=== PATIENT | male | born 1990 | race Caucasian/White ===

== ENCOUNTER 2017-08-29 17:24 | Inpatient (IN) | payer OTHER ==
[~2017-08-29] VITALS: Ht 182.9 cm; Wt 77.1 kg
[~2017-08-29 17:24] MED LIST: ALPRAZOLAM1 MG PO; AMOX TR-K CLV1 EAC4 PO; CLEOCIN300 MG PO; FOLIC ACID1 MG PO; KEPPRA500 MG PO; KLONOPIN1 MG PO; LIBRIUM10 MG PO; MULTI-DAY VITA1 EACH PO; NAPROSYN500 MG PO; NICOTINE PATCH1 EAC2 TD; NOHOMEMEDS; NORCO 5/3251 TABLET PO; OXYCODONE HCL10 MG PO; OXYCODONE HCL5 MG PO; PERCOCET 10/1 TABLET PO; PHENERGAN DM SYR1 ML PO; PROMETHAZINE HC25 M1; THERAGRAN1 TABLET PO; THIAMINE HCL100 MG PO; TRAZODONE HCL50 MG PO; TRIAMCINOLONE A15 GM TP; Thiamine,Vitamin B1 PO; ZOFRAN ODT4 MG PO
[2017-08-29 18:04] LABS: MCH 33.2 PG (29.0-34.0); MCHC 35.6 G/DL (30.0-36.0); MCV 93.2 FL (86-99); PLATELET COUNT 245 K/uL (156-360); RBC DIS.WIDTH-SD 44.7 % (39-53); RED BLOOD COUNT 5.15 M/uL (4.00-5.50); WHITE BLOOD COUNT 14.5 K/uL (4.1-10.2)
[2017-08-29 18:12] LABS: CHLORIDE 103 mEq/L (99-109); SODIUM 137 mEq/L (136-147)
[2017-08-29 18:13] LABS: ADD MIUA? YES; BILIRUBIN SMALL; BLOOD NEGATIVE; COLOR YELLOW ((YELLOW)); GLUCOSE (STRIP) NEGATIVE; KETONES NEGATIVE; LEUKOCYTES SMALL; NITRITE NEGATIVE; PROTEIN (STRIP) 30; SPECIFIC GRAVITY 1.021 (1.000-1.030)
[2017-08-29 18:14] LABS: GLUCOSE 101 mg/dL (70-99)
[2017-08-29 18:15] LABS: ANION GAP 11 MEQ/L (2-14)
[2017-08-29 18:16] LABS: TOTAL BILIRUBIN 2.1 mg/dL (0.0-1.0)
[2017-08-29 18:18] LABS: ALKALINE PHOSPHATASE 108 IU/L (3-129); GFR ESTIMATE (CALCULATED) > 59 mL/min/
[2017-08-29 18:19] LABS: UREA NITROGEN (BUN) 12 mg/dL (9-23)
[2017-08-29 18:25] LABS: BACTERIA RARE /HPF; EPITHELIAL CELLS NONE SEEN /HPF; MUCUS NONE SEEN /LPF; UCUL ADDED? YES; WHITE BLOOD CELLS 20-30 /HPF (0-5)
[2017-08-29 19:33] LABS: LIPASE 146 U/L (1.0-51.0)
[2017-08-29] MEDS ORDERED: QUETIAPINE FUMA50 MG PO (21:00)
[2017-08-29] MEDS ORDERED: GABAPENTIN800 MG PO (21:00)
[2017-08-29] MEDS ORDERED: NYQUIL (21:05)
[2017-08-29 23:52] VITALS: BP 137/79
[2017-08-30 03:36] VITALS: BP 118/72
[2017-08-30 07:26] LABS: HEMATOCRIT 47.3 % (38.0-50.0); MCH 32.5 PG (29.0-34.0); MCHC 34.5 G/DL (30.0-36.0); MCV 94.2 FL (86-99); MEAN PLAT.VOLUME 11.4 uM^3 (9.0-12.4); PLATELET COUNT 222 K/uL (156-360); RED BLOOD COUNT 5.02 M/uL (4.00-5.50); WHITE BLOOD COUNT 15.4 K/uL (4.1-10.2)
[2017-08-30 08:05] LABS: ALKALINE PHOSPHATASE 84 IU/L (3-129); ANION GAP 10 MEQ/L (2-14); CHLORIDE 107 MEQ/L (99-109); GFR ESTIMATE (CALCULATED) > 59 mL/min/; GLUCOSE 80 mg/dL (70-99); POTASSIUM 4.6 MEQ/L (3.7-5.4); SAMPLE HEMOLYSIS CHECK 0; SAMPLE ICTERIC CHECK 0; SAMPLE LIPEMIA CHECK 0; SODIUM 140 MEQ/L (136-147); TOTAL BILIRUBIN 2.5 MG/DL (0.0-1.0); UREA NITROGEN (BUN) 13 mg/dL (9-23)
[2017-08-30 08:17] VITALS: BP 134/83
[2017-08-30 11:17] VITALS: BP 131/77
[2017-08-30 15:05] LABS: ANTI-HEPATITIS A VIRUS (IGM) Nonreactive; HAV INDEX 0.19; HBSG INDEX 0.19
[2017-08-30 15:07] LABS: ANTI-HEPATITIS B CORE (IGM) Nonreactive; HBC IgM INDEX 0.07
[2017-08-30 15:08] LABS: HPCA INDEX 15.39
[2017-08-30 16:03] VITALS: BP 134/71
[2017-08-30 20:31] VITALS: BP 128/76
[2017-08-30 23:37] VITALS: BP 138/74
[2017-08-31 04:12] VITALS: BP 130/81
[2017-08-31 06:27] LABS: HEMATOCRIT 42.8 % (38.0-50.0); MCH 33.3 PG (29.0-34.0); MCHC 35.7 G/DL (30.0-36.0); PLATELET COUNT 172 K/uL (156-360); RBC DIS.WIDTH-CV 12.7 % (11.8-14.6); RBC DIS.WIDTH-SD 43.6 % (39-53); WHITE BLOOD COUNT 13.5 K/uL (4.1-10.2)
[2017-08-31 06:55] LABS: ALKALINE PHOSPHATASE 75 IU/L (3-129); AMYLASE 165 IU/L (1-118); ANION GAP 10 MEQ/L (2-14); CHLORIDE 104 MEQ/L (99-109); DIRECT BILIRUBIN 0.2 mg/dL (0.0-0.3); GFR ESTIMATE (CALCULATED) > 59 mL/min/; GLUCOSE 78 mg/dL (70-99); LIPASE 311 U/L (1.0-51.0); MAGNESIUM 1.7 mg/dl (1.3-2.7); POTASSIUM 4.4 MEQ/L (3.7-5.4); SAMPLE HEMOLYSIS CHECK 1; SAMPLE ICTERIC CHECK 0; SAMPLE LIPEMIA CHECK 0; SODIUM 137 MEQ/L (136-147); TOTAL BILIRUBIN 1.3 MG/DL (0.0-1.0); UREA NITROGEN (BUN) 10 mg/dL (9-23)
[2017-08-31 08:43] VITALS: BP 122/72
[2017-08-31 12:25] VITALS: BP 130/70
[2017-08-31 16:40] VITALS: BP 129/73
[2017-08-31 19:45] VITALS: BP 127/81
[2017-08-31 23:32] VITALS: BP 131/79
[2017-09-01 07:01] LABS: HEMATOCRIT 39.9 % (38.0-50.0); MCH 32.1 PG (29.0-34.0); MCHC 34.8 G/DL (30.0-36.0); MCV 92.1 FL (86-99); PLATELET COUNT 161 K/uL (156-360); RBC DIS.WIDTH-CV 12.5 % (11.8-14.6); RBC DIS.WIDTH-SD 42.8 % (39-53); RED BLOOD COUNT 4.33 M/uL (4.00-5.50); WHITE BLOOD COUNT 8.8 K/uL (4.1-10.2)
[2017-09-01 07:27] LABS: ALKALINE PHOSPHATASE 68 IU/L (3-129); AMYLASE 116 IU/L (1-118); ANION GAP 7 MEQ/L (2-14); CHLORIDE 102 MEQ/L (99-109); DIRECT BILIRUBIN 0.2 mg/dL (0.0-0.3); GFR ESTIMATE (CALCULATED) > 59 mL/min/; GLUCOSE 77 mg/dL (70-99); LIPASE 292 U/L (1.0-51.0); POTASSIUM 4.3 MEQ/L (3.7-5.4); SAMPLE HEMOLYSIS CHECK 0; SAMPLE ICTERIC CHECK 0; SAMPLE LIPEMIA CHECK 0; SODIUM 139 MEQ/L (136-147); UREA NITROGEN (BUN) 8 mg/dL (9-23)
[2017-09-01 07:28] LABS: TOTAL BILIRUBIN 0.9 MG/DL (0.0-1.0)
[2017-09-01 08:34] VITALS: BP 128/78
[2017-09-01 11:13] VITALS: BP 129/74
[2017-09-01 16:42] VITALS: BP 124/82
[2017-09-01 19:34] VITALS: BP 132/85
[2017-09-01 23:28] VITALS: BP 135/79
[2017-09-02] VITALS (7 sets, daily range): BP systolic 97–135; BP diastolic 56–84
[2017-09-02 07:01] LABS: HEMATOCRIT 41.2 % (38.0-50.0); MCH 31.8 PG (29.0-34.0); MCHC 34.2 G/DL (30.0-36.0); MEAN PLAT.VOLUME 11.2 uM^3 (9.0-12.4); PLATELET COUNT 194 K/uL (156-360); RBC DIS.WIDTH-CV 12.5 % (11.8-14.6); RBC DIS.WIDTH-SD 43.1 % (39-53); RED BLOOD COUNT 4.43 M/uL (4.00-5.50); WHITE BLOOD COUNT 8.3 K/uL (4.1-10.2)
[2017-09-02 07:29] LABS: ALKALINE PHOSPHATASE 68 IU/L (3-129); AMYLASE 130 IU/L (1-118); ANION GAP 7 MEQ/L (2-14); CHLORIDE 103 MEQ/L (99-109); DIRECT BILIRUBIN 0.2 mg/dL (0.0-0.3); GFR ESTIMATE (CALCULATED) > 59 mL/min/; LIPASE 400 U/L (1.0-51.0); POTASSIUM 4.2 MEQ/L (3.7-5.4); SAMPLE HEMOLYSIS CHECK 0; SAMPLE ICTERIC CHECK 0; SAMPLE LIPEMIA CHECK 0; SODIUM 142 MEQ/L (136-147); TOTAL BILIRUBIN 0.8 MG/DL (0.0-1.0); UREA NITROGEN (BUN) 6 mg/dL (9-23)
[2017-09-02 07:32] LABS: GLUCOSE 110 mg/dL (70-99)
[2017-09-03 03:17] VITALS: BP 116/65
[2017-09-03 06:23] LABS: HEMATOCRIT 39.1 % (38.0-50.0); MCH 31.9 PG (29.0-34.0); MCHC 34.5 G/DL (30.0-36.0); MCV 92.4 FL (86-99); MEAN PLAT.VOLUME 11.1 uM^3 (9.0-12.4); PLATELET COUNT 189 K/uL (156-360); RBC DIS.WIDTH-CV 12.7 % (11.8-14.6); RBC DIS.WIDTH-SD 43.1 % (39-53); RED BLOOD COUNT 4.23 M/uL (4.00-5.50)
[2017-09-03 06:48] LABS: ALKALINE PHOSPHATASE 73 IU/L (3-129); ANION GAP 8 MEQ/L (2-14); CHLORIDE 104 MEQ/L (99-109); GFR ESTIMATE (CALCULATED) > 59 mL/min/; GLUCOSE 122 mg/dL (70-99); POTASSIUM 3.8 MEQ/L (3.7-5.4); SAMPLE HEMOLYSIS CHECK 0; SAMPLE ICTERIC CHECK 0; SAMPLE LIPEMIA CHECK 0; SODIUM 141 MEQ/L (136-147); TOTAL BILIRUBIN 0.8 MG/DL (0.0-1.0); UREA NITROGEN (BUN) 5 mg/dL (9-23)
[2017-09-03 08:47] VITALS: BP 130/89
[2017-09-03 09:46] LABS: AMYLASE 160 IU/L (1-118); LIPASE 438 U/L (1.0-51.0)
[2017-09-03 11:45] VITALS: BP 115/64
[2017-09-03 12:08] LABS: HCV RNA (LOG IU/mL) 6.03 (<1.18)
[2017-09-03] MEDS ORDERED: OXYCODONE HCL15 MG PO (16:31)
[2017-09-03 16:46] VITALS: BP 123/80
[2017-09-03 20:57] VITALS: BP 110/72
[2017-09-04 00:16] VITALS: BP 126/82
[2017-09-04 04:13] VITALS: BP 112/67; BP 144/80
[2017-09-04 08:16] LABS: ALKALINE PHOSPHATASE 80 IU/L (3-129); ANION GAP 6 MEQ/L (2-14); CHLORIDE 103 MEQ/L (99-109); GFR ESTIMATE (CALCULATED) > 59 mL/min/ (58.99-99999); GLUCOSE 105 mg/dL (70-99); POTASSIUM 4.5 MEQ/L (3.7-5.4); SAMPLE HEMOLYSIS CHECK 0; SAMPLE ICTERIC CHECK 0; SAMPLE LIPEMIA CHECK 0; SODIUM 142 MEQ/L (136-147); UREA NITROGEN (BUN) 9 mg/dL (9-23)
[2017-09-04 08:20] LABS: TOTAL BILIRUBIN 0.6 MG/DL (0.0-1.0)
[2017-09-04 08:52] VITALS: BP 102/65
== END 2017-09-04 11:26 | disposition home or self-care (01) | DRG 439 ==
LOC: EME 17:24 → EDOF 21:37 → 3EAST 21:37 → ENRESERV 21:40 → 3EAST 23:19
PROVIDERS: Hospitalist; Internal Medicine Gastroenterology; Physician Assistant
DX: K85.20 Alcohol induced acute pancreatitis without necrosis or infection (principal); R65.10 Systemic inflammatory response syndrome (SIRS) of non-infectious origin without acute organ dysfunction; K70.10 Alcoholic hepatitis without ascites; F10.20 Alcohol dependence, uncomplicated; N39.0 Urinary tract infection, site not specified; E86.0 Dehydration; G89.29 Other chronic pain; M25.521 Pain in right elbow; F32.9 Major depressive disorder, single episode, unspecified; G43.909 Migraine, unspecified, not intractable, without status migrainosus; R30.0 Dysuria; R74.0 Nonspecific elevation of levels of transaminase and lactic acid dehydrogenase [LDH]; B19.20 Unspecified viral hepatitis C without hepatic coma; F12.10 Cannabis abuse, uncomplicated; F17.200 Nicotine dependence, unspecified, uncomplicated; Z80.0 Family history of malignant neoplasm of digestive organs; Z81.1 Family history of alcohol abuse and dependence; Z86.73 Personal history of transient ischemic attack (TIA), and cerebral infarction without residual deficits; Z87.440 Personal history of urinary (tract) infections
CPT/HCPCS: 74160; 76705; 80048; 80053; 80074; 80076; 81003; 82150; 83690; 83735; 84100; 85027; 87086; 87522 90; 93005; 99281; 99285; C9113; J0696; J1170; J1644; J2060; J2270; J2405; J3411; J7030; J7120; S0028

== ENCOUNTER 2017-12-16 19:20 | Emergency (ER) | payer OTHER ==
[~2017-12-16] VITALS: Ht 188 cm; Wt 76.5 kg
[~2017-12-16 19:20] MED LIST changes: +GABAPENTIN800 MG PO; +NYQUIL; +OXYCODONE HCL15 MG PO; +QUETIAPINE FUMA50 MG PO
[2017-12-16 22:09] VITALS: BP 130/79
== END 2017-12-16 22:11 | disposition home or self-care (01) ==
LOC: EME → EDBD 19:20 → EME 19:20
DX: T40.2X1A Poisoning by other opioids, accidental (unintentional), initial encounter (principal); F17.200 Nicotine dependence, unspecified, uncomplicated; Z86.73 Personal history of transient ischemic attack (TIA), and cerebral infarction without residual deficits; F32.9 Major depressive disorder, single episode, unspecified
CPT/HCPCS: 99281; 99283; J2310